=== PATIENT | male | born 1970 | race Caucasian/White ===

== ENCOUNTER 2018-06-07 14:55 | Emergency (ER) | payer OTHER ==
[~2018-06-07] VITALS: Ht 170.2 cm; Wt 74.8 kg
[~2018-06-07 14:55] MED LIST: ATIVAN0.5 MG PO; COLACE 100 MG100 MG PO; DEPAKOTE ER250 MG PO; DEPAKOTE ER500 MG PO; GABAPENTIN100 MG PO; NEURONTIN 300M300 M2 PO; RISPERDAL2 MG PO
[2018-06-07 16:22] VITALS: BP 100/58
== END 2018-06-07 17:18 | disposition home or self-care (01) ==
LOC: ER 14:55
DX: S01.111A Laceration without foreign body of right eyelid and periocular area, initial encounter (principal); R56.9 Unspecified convulsions; F20.9 Schizophrenia, unspecified; F41.9 Anxiety disorder, unspecified; X58.XXXA Exposure to other specified factors, initial encounter; Y92.89 Other specified places as the place of occurrence of the external cause; Y93.89 Activity, other specified; Y99.8 Other external cause status